=== PATIENT | male | born 1990 | race African-American/Black ===

== ENCOUNTER 2020-08-13 00:53 | Emergency (ER) | payer MEDICAID ==
[~2020-08-13] VITALS: Ht 177.8 cm; Wt 85.0 kg
--- NOTE | 2020-08-13 01:14 | NUR ---
PATIENT BIB [facility] FOR INTOXICATION IN PUBLIC PLACE. REPORTED TO BE STUMBLING AROUND WHICH WAS NOTED WHEN TRANSFERRING FROM [facility] TO [facility]. PATIENT ONLY ORIENTED TO SELF. WHEN QUESTIONS ASKED, HE HAS ILLOGICAL/INAPPROPRIATE RESPONSES. WHEN ASKED WHERE HE IS, HE POINTED TO THE TOILET PAPER STUCK TO HIS SHOE AND STATES "TOILET PAPER". "HEY BABY. COME ON. TAKE THIS STUFF OFF ME" REFERING TO [employer] EQUIPMENT. PATIENT TOOK HIS RING OFF TO HAND TO ME AND DROPPED IT ON FLOOR. AGREED TO BREATHALYZER. RING PLACED IN PATIENT WALLET WHICH IS ON THE COUNTER IN ROOM. CALL YEUNG IN REACH. REPORT HANDED OFF TO CATHI GRUBER
--- NOTE | 2020-08-13 01:14 | NUR ---
Report received from ALLYN Cervantes. This RN to assume care.
--- NOTE | 2020-08-13 01:42 | NUR ---
Pt desats while sleeping to 78%, stimulated pt and o2 sats back up to 100%. PAC aware.
--- NOTE | 2020-08-13 03:00 | NUR ---
Patient sleeping in gurney. Respirations even and unlabored.
--- NOTE | 2020-08-13 05:09 | NUR ---
Attempted to wake patient for breathalyzer. Patient unable to stay awake for process. Sleeping in gurney. Respirations even and unlabored.
--- NOTE | 2020-08-13 06:49 | NUR ---
report from tawanda doyle.
--- NOTE | 2020-08-13 07:07 | NUR ---
pt sleeping in bed, snoring. respirations even and unlabored, 97% on 2L O2. call light within reach.
--- NOTE | 2020-08-13 08:27 | NUR ---
PT IS AWAKE AND ALERT, NO LONGER REQUIRING OXYGEN. 98% ON RA. UPDATED VITALS, TRYING TO FIGURE OUT HOW TO GET A HOLD OF THE PATIENTS SISTER. PT ABLE TO STAND UP TO URINATE AND IS STEADY ON HIS FEET. CALL LIGHT WITHIN REACH.
[2020-08-13 09:14] VITALS: BP 134/72
--- NOTE | 2020-08-13 09:15 | NUR ---
PT IS ABLE TO AMBULATE WITH A STEADY GAIT. ATTEMPTED TO LOCATE FAMILY BUT WERE UNABLE BECAUSE THE PATIENTS PHONE AND BACKPACK WERE STOLEN. THE PATIENT IS FAMILIAR WITH THE BUS SYSTEM. BUS PASS GIVEN. NO OXYGEN NEEDED, PT O2 SAT ON ROOM AIR IS 95%. SNACKS AND DRINKS GIVEN.
--- NOTE | 2020-08-13 09:18 | NUR ---
Patient/Caregiver given discharge instructions and they have confirmed that they understand the instructions. Patient ambulatory with steady gait.
== END 2020-08-13 09:19 | disposition home or self-care (01) ==
LOC: ED 08:38
DX: F10.120 Alcohol abuse with intoxication, uncomplicated (principal); Y90.0 Blood alcohol level of less than 20 mg/100 ml
CPT/HCPCS: 82962; 99285